=== PATIENT | male | born 1930 | race Caucasian/White ===

== ENCOUNTER 2018-05-21 16:05 | Emergency (ER) | payer OTHER, BC ==
[~2018-05-21] VITALS: Ht 165.1 cm; Wt 65.4 kg
[2018-05-21] MEDS ORDERED: AUGMENTIN875 MG PO (19:20)
[2018-05-21 19:57] VITALS: BP 142/61
== END 2018-05-21 19:58 | disposition home or self-care (01) ==
LOC: EME 16:05
PROC: 3E0234Z Introduction of Serum, Toxoid and Vaccine into Muscle, Percutaneous Approach (ICD-10-PCS; principal; 2018-05-21)
DX: S81.852A Open bite, left lower leg, initial encounter (principal); S81.851A Open bite, right lower leg, initial encounter; W55.51XA Bitten by raccoon, initial encounter; Z20.3 Contact with and (suspected) exposure to rabies; Z23 Encounter for immunization; Z29.14 Encounter for prophylactic rabies immune globulin
CPT/HCPCS: 99281; 99284